=== PATIENT | female | born 1935 | race Two or more races ===

== ENCOUNTER 2018-09-13 19:21 | Inpatient (IN) | payer OTHER ==
[~2018-09-13] VITALS: Ht 157.5 cm; Wt 54.4 kg
[2018-09-13] MEDS ORDERED: ACETAMINOPHEN 325MG TABLET PO STA (20:05)
[2018-09-13] MEDS ORDERED: PIPERACILLIN/TAZ 3.375G PREMIX 50 ML IV ONE (20:15)
[2018-09-13] MEDS ORDERED: SODIUM CHLORIDE 0.9% 1000ML BAG (SEPSIS BOLUS) IV ONE (20:15)
[2018-09-13] MEDS ORDERED: VANCOMYCIN 1 G PREMIX 200 ML IV ONE (20:15)
[2018-09-13] MEDS ORDERED: LIDOCAINE 1%/EPI 1:100,000 10 ML VIAL IJ ONE (20:30)
[2018-09-13 20:51] LABS: CHLORIDE 107 mEq/L (98-107)
[2018-09-13 20:56] LABS: HEMATOCRIT. 36.4 % (36.0-48.0); HEMOGLOBIN. 11.9 g/dL (12.0-16.0); MEAN CORPUSCULAR HEMOGLOBIN 28.9 pg (28.0-32.0); MEAN CORPUSCULAR VOLUME 88.9 fL (81.0-99.0); MEAN PLATELET VOLUME 8.3 fl (7.4-10.4); PLATELET 290 x1000/uL (130-400); RED CELL DISTRIBUTION WIDTH 13.2 % (11.6-14.6)
[2018-09-13 21:01] LABS: CLARITY URINE CLEAR (CLEAR); COLOR URINE YELLOW (YELLOW); KETONES URINE NEGATIVE (NEGATIVE); LEUKOCYTE ESTERASE URINE NEGATIVE (NEGATIVE); NITRITE URINE NEGATIVE (NEGATIVE); OCCULT BLOOD URINE NEGATIVE (NEGATIVE); PH URINE 6.5 (4.5-8.0); PROTEIN URINE NEGATIVE (NEGATIVE); SPECIFIC GRAVITY URINE 1.001 (1.005-1.030); UROBILINOGEN URINE 0.2 E.U./dL (0.2-1.0)
[2018-09-13 21:07] LABS: D-DIMER 3.88 mg/L FEU (<0.50); PARTIAL THROMBOPLASTIN TIME 26.1 sec (23.4-31.0); PROTHROMBIN TIME 10.5 sec (9.1-11.1)
[2018-09-13] MEDS ORDERED: ASPIRIN 325MG EC TABLET PO ONE (21:15)
[2018-09-13 21:16] LABS: PLATELET ESTIMATE NORMAL
[2018-09-13] MEDS ORDERED: ENOXAPARIN 60MG/0.6ML SYR SUBCUT ONE (21:30)
[2018-09-13] MEDS ORDERED: IPRATROPIUM/ALBUTEROL 0.5-3(2.5)MG/3ML NEB INH PRN (22:45)
[2018-09-13] MEDS ORDERED: DOCUSATE SODIUM 100MG CAPSULE PO PRN (22:45)
[2018-09-13] MEDS ORDERED: CLONIDINE 0.1MG TABLET PO PRN (22:45)
[2018-09-13] MEDS ORDERED: MAGNESIUM/ALUMINUM HYDROXIDE/SIMETHICONE 30ML UDC PO PRN (22:45)
[2018-09-13] MEDS ORDERED: IOHEXOL-350 100 ML BOTTLE ONE (23:02)
[2018-09-14] MEDS ORDERED: LEVOFLOXACIN 500MG PREMIX 100 ML IV SCH ×2
[2018-09-14] MEDS ORDERED: FUROSEMIDE 40MG/4ML VIAL IVP ONE (00:30)
[2018-09-14] MEDS ORDERED: SODIUM CHLORIDE 0.9% 500 ML IV ONE (00:58)
[2018-09-14 04:36] LABS: BASOPHILS % 0.7 % (0.0-2.0); EOSINOPHILS % 0.3 % (0.0-5.0); HEMATOCRIT. 30.6 % (36.0-48.0); HEMOGLOBIN. 10.2 g/dL (12.0-16.0); MEAN CORPUSCULAR HEMOGLOBIN 29.9 pg (28.0-32.0); MEAN CORPUSCULAR VOLUME 89.3 fL (81.0-99.0); MEAN PLATELET VOLUME 8.2 fl (7.4-10.4); MONOCYTES % 8.7 % (2.0-8.0); NEUTROPHILS % 74.3 % (40.0-76.0); PLATELET 213 x1000/uL (130-400); RED BLOOD CELL COUNT 3.43 mill/uL (4.2-5.4); RED CELL DISTRIBUTION WIDTH 13.5 % (11.6-14.6)
[2018-09-14 04:48] LABS: PHOSPHORUS 3.3 mg/dL (2.5-4.9)
[2018-09-14 04:54] LABS: CREATINE KINASE MB FRACTION 18.1 ng/mL (0.5-3.6); T4 FREE 1.35 ng/dL (0.76-1.46)
[2018-09-14 09:07] LABS: *AMPHETAMINES SCREEN URINE NEGATIVE (NEGATIVE); *BARBITURATES SCREEN URINE NEGATIVE (NEGATIVE); *BENZODIAZEPINES SCREEN URINE NEGATIVE (NEGATIVE); *COCAINE SCREEN URINE NEGATIVE (NEGATIVE)
[2018-09-14 09:08] LABS: CANNABINOID URINE SCREEN NEGATIVE (NEGATIVE); METHADONE URINE SCREEN NEGATIVE (NEGATIVE); OPIATES URINE SCREEN NEGATIVE (NEGATIVE); PHENCYCLIDINE URINE SCREEN NEGATIVE (NEGATIVE)
[2018-09-14] MEDS ORDERED: IPRATROPIUM/ALBUTEROL 0.5-3(2.5)MG/3ML NEB HHN PRN (18:45)
[2018-09-14] MEDS ORDERED: DEXT 5%/LACTATED RINGERS 1,000 ML IV SCH (20:00)
[2018-09-14] MEDS ORDERED: LEVOFLOXACIN 250MG PREMIX 50 ML IV SCH (21:00)
[2018-09-14 21:40] VITALS: BP 147/75
[2018-09-14 22:00] VITALS: BP 130/69
[2018-09-15] VITALS (7 sets, daily range): BP systolic 107–152; BP diastolic 51–82
[2018-09-15] MEDS: IPRATROPIUM/ALBUTEROL 0.5-3(2.5)MG/3ML NEB HHN SCH ×2 (01:36→07:21)
[2018-09-15 07:26] LABS: BASOPHILS % 0.6 % (0.0-2.0); EOSINOPHILS % 3.2 % (0.0-5.0); HEMATOCRIT. 31.4 % (36.0-48.0); HEMOGLOBIN. 10.2 g/dL (12.0-16.0); LYMPHOCYTES % 16.4 % (20.0-50.0); MEAN CORPUSCULAR VOLUME 89.4 fL (81.0-99.0); MEAN PLATELET VOLUME 8.8 fl (7.4-10.4); NEUTROPHILS % 72.8 % (40.0-76.0); PLATELET 208 x1000/uL (130-400); RED BLOOD CELL COUNT 3.52 mill/uL (4.2-5.4); RED CELL DISTRIBUTION WIDTH 13.4 % (11.6-14.6)
[2018-09-15 07:34] LABS: CHLORIDE 112 mEq/L (98-107)
[2018-09-15 07:47] LABS: AMYLASE 160 IU/L (25-115)
== END 2018-09-15 12:59 | disposition left against medical advice (07) | DRG 280 ==
LOC: ER 19:49 → EDBEDREQSVC 22:26 → EDBEDREQTM 22:26 → EDBEDREQ 22:35 → CANRESERV 09-14 08:47 → ENRESERV 09-14 08:47 → EDBEDREQSVC 09-14 09:02 → ENRESERV 09-14 20:08 → 3WST 09-14 21:38
PROVIDERS: ADMIT Family Medicine Adult Medicine; ATTEND Family Medicine Adult Medicine
DX: I21.4 Non-ST elevation (NSTEMI) myocardial infarction (principal); J96.00 Acute respiratory failure, unspecified whether with hypoxia or hypercapnia; K85.90 Acute pancreatitis without necrosis or infection, unspecified; E44.0 Moderate protein-calorie malnutrition; L02.212 Cutaneous abscess of back [any part, except buttock and flank]; D64.9 Anemia, unspecified; Z53.21 Procedure and treatment not carried out due to patient leaving prior to being seen by health care provider; K80.20 Calculus of gallbladder without cholecystitis without obstruction; N61.1 Abscess of the breast and nipple; Z68.21 Body mass index [BMI] 21.0-21.9, adult
CPT/HCPCS: 36415; 71045; 71275; 76700; 80048; 80061; 80076; 80305; 82150; 82550; 82553; 83605; 83735; 83880; 84100; 84145; 84439; 84443; 84481; 84484; 85379; 93005; 93306; 93880; 93970; 96365; 96366; 97162; 99291; J1956; J2543; J3370; J3490; J7030; J7040; J7050; J7121; J7620; Q9967